=== PATIENT | female | born 1975 | race Hispanic/Latino ===

== ENCOUNTER 2024-03-03 06:17 | Day surgery (SDC) | payer OTHER ==
[~2024-03-03] VITALS: Ht 172.7 cm; Wt 152.0 kg
[2024-03-03] VITALS (10 sets, daily range): BP systolic 90–125; BP diastolic 43–76; PULSE 72–78; RESP 15–18; TEMP 96.9–97.7
[2024-03-03] MEDS ORDERED: METO-409 PO (07:31)
[2024-03-03] MEDS ORDERED: FENO145T26 PO (07:31)
[2024-03-03] MEDS ORDERED: SEMA2PEN SQ (07:31)
[2024-03-03] MEDS ORDERED: VALS320T16 PO (07:31)
[2024-03-03] MEDS ORDERED: METF-446 PO (07:31)
[2024-03-03] MEDS ORDERED: HYDR25TA PO (07:31)
[2024-03-03] MEDS: 0.9%NACL 1000ML 1,000 ML IV ONE (07:32)
[2024-03-03] MEDS ORDERED: proPOFol 10 MG/ML 20ML VIAL IV ONE ×2 (08:57→09:10)
[2024-03-03] MEDS ORDERED: LIDOCAINE HCL 1% 20 ML VIAL ONE (08:57)
== END 2024-03-03 10:18 | disposition home or self-care (01) ==
LOC: ENDO 06:17 → DAH 06:17 → ENDO 10:18
PROVIDERS: ATTEND Internal Medicine Gastroenterology
DX: K62.5 Hemorrhage of anus and rectum (principal); K63.3 Ulcer of intestine; D12.2 Benign neoplasm of ascending colon; D12.5 Benign neoplasm of sigmoid colon; I10 Essential (primary) hypertension; E11.9 Type 2 diabetes mellitus without complications; E66.9 Obesity, unspecified; E78.5 Hyperlipidemia, unspecified; Z79.84 Long term (current) use of oral hypoglycemic drugs; Z86.0100 Personal history of colon polyps, unspecified; Z80.0 Family history of malignant neoplasm of digestive organs; Z79.01 Long term (current) use of anticoagulants; Z79.899 Other long term (current) drug therapy
CPT/HCPCS: 84703; 36415; 45380; 45385; 82948; J7030; J2704 ×2; A4620; A4215 ×2; A4223; A4222; A4221; A4663; A4606; J3490